=== PATIENT | male | born 1960 | race Caucasian/White ===

== ENCOUNTER 2024-04-23 17:22 | Emergency (ER) | payer OTHER, SELFPAY ==
[2024-04-23 17:24] VITALS: BP 104/78; PULSE 61; RESP 18; TEMP 36.8; O2SAT 96; BMI 26.5
--- NOTE | 2024-04-23 17:34 | CT_ITS ---
EXAM: CT ABDOMEN AND PELVIS WITH INTRAVENOUS CONTRAST CLINICAL INDICATION: RUQ injury pain. Blunt injury. TECHNIQUE: Helically acquired images were obtained of the abdomen and pelvis with intravenous contrast. This CT exam was performed using one or more of the following dose reduction techniques: automated exposure control, adjustment of the mA and/or kV according to patient size, and/or use of iterative reconstruction technique. CONTRAST: IV 100mL [id number] COMPARISON: No relevant prior studies available. FINDINGS: LOWER THORAX: Granulomas or postoperative changes at the distal esophagus associated with a medium-sized hiatal hernia. Minimal dependent atelectasis. Otherwise, no acute findings in the lower chest. No cardiomegaly. No significant pericardial effusion. ABDOMEN: LIVER: No significant abnormality. Homogeneous. No focal mass. GALLBLADDER AND BILE DUCTS: The gallbladder is decompressed. No calcified gallstones. No gallbladder distention or wall edema. No intra- or extrahepatic biliary ductal dilation. PANCREAS: No significant abnormality. No focal cystic or solid mass. SPLEEN: No significant abnormality. Normal size without focal cystic or solid mass. ADRENALS: No significant abnormality. No nodules. KIDNEYS AND URETERS: Bilateral renal peripelvic cysts are present for which no follow-up is indicated. No hydronephrosis. STOMACH AND BOWEL: No significant abnormality. No stomach or bowel distention. No focal inflammatory change. PELVIS: APPENDIX: A normal appendix is identified. BLADDER: No significant abnormality. REPRODUCTIVE: Normal as visualized. No mass. ABDOMEN and PELVIS: INTRAPERITONEAL SPACE: No significant abnormality. No ascites or other fluid collection. No free air. BONES/JOINTS: Degenerative changes in the spine. No suspicious lytic or blastic abnormality. SOFT TISSUES: Bilateral fat-containing inguinal hernias and small fat-containing umbilical hernia. VASCULATURE: Atherosclerosis of the aorta and its branch vessels. Abdominal aorta is non-dilated. LYMPH NODES: No significant abnormality. No enlarged lymph nodes. CT/Abdomen/Pelvis W IV Cont ONLY IMPRESSION: No evidence of acute posttraumatic change. No solid organ injury. Granulomas or postoperative changes at the distal esophagus associated with a medium-sized hiatal hernia. Correlate with history. Electronically Signed: Heri Castillo DO at 19:12 EDT ,
--- NOTE | 2024-04-23 17:35 | EX.ED.GENINJ ---
HPI History of Present Illness Chief Complaint: Other, Pain/Inj Informant: patient Onset/Context/Timing Onset: Today (2:45 PM) Narrative Narrative: Patient presents secondary to right lower rib/right upper quadrant abdominal pain. He was pushing a wheelbarrow when the piece protruding from the front hit the ground and the wheelbarrow stopped suddenly. He did not stop and ran into the handlebar. This is a blunt injury into the right upper quadrant of his abdomen. He complains of significant pain to that area. He is not on any blood thinners. He has not taken anything for pain. PFSH PFSH Allergy/AdvReac Type Severity Reaction Status Date / Time No Known Allergies Allergy Verified 04/23/24 17:23 Surgical History History of eye surgery History of amputation of finger Social History Smoking Status: Never smoker ROS ROS ED Constitutional Constitutional ED: Denies chills or fever(s) ENT ENT ED: Denies rhinorrhea or sore throat Cardiovascular Cardiovascular: Reports chest pain; Denies palpitations Respiratory/Chest Respiratory/Chest: Denies cough or dyspnea Gastrointestinal Gastrointestinal: Reports abdominal pain; Denies diarrhea, nausea or vomiting Genitourinary Genitourinary ED: Denies dysuria Musculoskeletal Musculoskeletal: Denies back pain or extremity pain Integumentary Denies Abrasions or rash Neurologic Neurologic: Denies headache(s) or weakness Allergic/Immunologic Allergic/Immunologic ED: Denies lip swelling or urticaria EXAM Physical Exam Const Vital Signs: 04/23/24 17:24 04/23/24 19:35 04/23/24 19:41 Temperature 98.2 F Temperature Source Temporal Pulse Rate 61 68 Respiratory Rate 18 16 Respiratory Pattern Normal Blood Pressure 104/78 130/71 H Blood Pressure Mean 86 90 Pulse Ox 96 93 Oxygen Delivery Method Room Air Room Air Positive well nourished and well developed General Appearance ED: well developed HEENT atraumatic Eyes EOMs intact bilaterally Chest Wall palpation of chest normal Chest Narrative: No reproducible rib tenderness. Resp normal respiratory effort and clear to auscultation bilaterally Cardio regular rhythm Rate: regular rate GI GI Narrative: Tenderness to palpation in the right upper quadrant. Mild erythema of the skin but no ecchymosis noted at this time. Back/Spine normal to inspection Extremity normal to inspection Neuro oriented x3 and moves all extremities Psych mental status grossly normal MDM MDM MDM Narrative Medical decision making narrative: Due to concern for blunt liver injury, IV line will be established. Labwork obtained to evaluate for leukocytosis, anemia, and electrolyte derangement. CT of the abdomen pelvis with IV contrast will be obtained to evaluate for any liver or pancreatic injury. History & Record Review Discussion w/independent historian: Patient and Significant other Lab Data Attestation: I reviewed the patient's lab results. Labs: Laboratory Results - last 24 hr 04/23/24 17:40 WBC 9.0 RBC 5.02 Hgb 14.7 Hct 43.7 MCV 87.1 MCH 29.3 MCHC 33.6 RDW Std Deviation 42.5 RDW Coeff of Amina 13.3 Plt Count 206 MPV 11.2 Immature Gran % (Auto) 0.200 Neut % (Auto) 75.9 H Lymph % (Auto) 15.8 L [place] % (Auto) 7.0 Eos % (Auto) 0.4 Baso % (Auto) 0.7 Absolute Neuts (auto) 6.9 Absolute Lymphs (auto) 1.43 Nucleated RBC % 0 Sodium 139 Potassium 4.2 Chloride 106 Carbon Dioxide 25.0 Anion Gap 8 BUN 22 H Creatinine 1.14 Estim Creat Clear Calc 67.59 Est GFR (MDRD) Af Amer 83 Est GFR (MDRD) Non-Af 69 BUN/Creatinine Ratio 19.3 Glucose 150 H Calcium 8.8 Total Bilirubin 0.40 Direct Bilirubin 0.12 AST 25 ALT 29 Alkaline Phosphatase 68 Total Protein 7.3 Albumin 3.9 Globulin 3.4 Lipase 31 Radiography Diagnostic Testing: Clinical Impression(s) from Imaging Studies Abdomen/Pelvis CT 04/23/24 17:34 IMPRESSION: No evidence of acute posttraumatic change. No solid organ injury. Granulomas or postoperative changes at the distal esophagus associated with a medium-sized hiatal hernia. Correlate with history. Electronically Signed: Heri Castillo DO at 19:12 EDT , Treatment and Re-Evaluation Narrative: CBC was normal white count 9.0 with a hemoglobin of 14.7. 76% neutrophils noted. Chemistry studies reveal a BUN of 22 and a creatinine 1.14. Glucose is 150. LFTs and lipase unremarkable. CT scan of the abdomen and pelvis obtained and reveals no evidence of acute posttraumatic change. No solid organ injury. He does have some granulomas of the distal esophagus associated with a medium sized hiatal hernia. On repeat evaluation patient resting comfortably. He states his pain does seem to be easing as he is able to lie in one position. He will use ice to the area and take Tylenol or ibuprofen as needed. He does not wish for anything stronger at home. Return instructions were provided. Discharge Plan Triage Chief Complaint: Other, Pain/Inj ED Provider: Keyonna Quiroag Dx/Rx/DC Orders Clinical Impression: Blunt injury of abdomen Instructions: ED Abd Injury Blunt Benign Primary Care Provider: Care Physician,No Primary Referrals: Heaven Cannon MD [Med Staff - Active Staff] - As Needed Care Physician,No Primary [Primary Care Provider] - Print Language: Korean Disposition Disposition: Home, Self Care
[2024-04-23] MEDS: 0.9% Normal Saline (1000mL) 1,000 ML 150 ML IV (17:43)
[2024-04-23 17:56] LABS: Absolute Lymphocyte Count 1.43 X10^3/uL (0.83-4.51); Absolute Neutrophil Count 6.9 X10^3/uL (2.0-7.7); Basophil# 0.06 X10^3/uL; Basophil% 0.7 % (0-1); Eosinophil# 0.04 X10^3/uL; Eosinophils% 0.4 % (0-5); Hematocrit 43.7 % (40-54); Hemoglobin 14.7 g/dL (13.0-16.5); Lymphocyte # 1.43 X10^3/ul (0.83-4.51); Lymphocyte % 15.8 % (19-41); Mean Corp Hgb Conc 33.6 g/dL (32-36); Mean Corpuscular Hgb 29.3 pg (27.0-32.0); Mean Corpuscular Volume 87.1 fL (80-94); Mean Platelet Vol. 11.2 fl (6.2-12.0); Monocyte# 0.63 X10^3/uL; NRBC Flagged by Analyzer 0 % (0-5); Neutrophil # 6.85 X10^3/uL (2.7-7.7); Neutrophil % 75.9 % (47-70); Platelet Count 206 K/mm3 (150-450); RBC Distribution Width CV 13.3 % (11.6-14.6); RBC Distribution Width SD 42.5 fl (35.1-43.9); Red Blood Count 5.02 M/mm3 (4.6-6.2)
[2024-04-23 18:13] LABS: AST(SGOT) 25 U/L (15-37); Alanine Aminotransfer ALT/SGPT 29 U/L (16-61); Albumin, Serum 3.9 g/dL (3.2-5.0); Alkaline Phosphatase 68 U/L (45-117); Anion Gap 8 (5-15); BUN 22 mg/dL (7-18); BUN/Creat Ratio 19.3 RATIO (10-20); Bilirubin, Direct 0.12 mg/dL (0.00-0.30); Calcium,Total 8.8 mg/dL (8.5-10.1); Chloride 106 mmol/L (98-107); Creatinine, Serum 1.14 mg/dL (0.70-1.30); EST Glomerular Filtration Rate 69 mL/min (>60); Est Glom Filt Rate - Afr Amer 83 mL/min (>60); Estimated Creatinine Clearance 67.59 ml/min; Globulin 3.4 g/dL (2.2-4.2); Glucose 150 mg/dL (74-106); Lipase 31 U/L (13-75); Potassium 4.2 mmol/L (3.5-5.1); Protein, Total 7.3 g/dL (6.4-8.2); Sodium Level 139 mmol/L (136-145)
[2024-04-23 19:35] VITALS: BP 130/71; PULSE 68; RESP 16; O2SAT 93
[2024-04-23 20:00] VITALS: BP 123/74; PULSE 75; RESP 16; TEMP 36; O2SAT 96
== END 2024-04-23 20:08 | disposition home or self-care (01) ==
PROVIDERS: Emergency Provider Emergency Medicine; Visit Provider Emergency Medicine
DX: S39.91XA Unspecified injury of abdomen, initial encounter (principal); X58.XXXA Exposure to other specified factors, initial encounter
CPT/HCPCS: 74177; 80048; 80076; 83690; 85025; 99283; Q9967; A4216